=== PATIENT | female | born 1995 | race Caucasian/White ===

== ENCOUNTER 2018-09-01 00:13 | Emergency (ER) | payer OTHER ==
[2018-09-01] MEDS: DIPHTH/TET/ACEL PERTUSS (ADULT) 0.5 ML VIAL IM* (01:34)
[2018-09-01] MEDS: LIDOCAINE 2% (MDV) 20 ML INJ INJ (01:34)
== END 2018-09-01 01:59 | disposition home or self-care (01) ==
LOC: FTE 00:13
DX: S61.210A Laceration without foreign body of right index finger without damage to nail, initial encounter (principal); W26.0XXA Contact with knife, initial encounter; Y92.9 Unspecified place or not applicable; Z23 Encounter for immunization
CPT/HCPCS: 12001; 90471; 90715; 99283-25